=== PATIENT | male | born 1975 | race American Indian/Alaskan Native ===

== ENCOUNTER 2021-06-26 15:45 | Emergency (ER) | payer OTHER ==
[2021-06-26 16:42] VITALS: BP 130/86; PULSE 99; TEMP 98.6; BMI 28.3
== END 2021-06-26 17:20 | disposition home or self-care (01) ==
LOC: JER 15:45
DX: B34.9 Viral infection, unspecified (principal)
CPT/HCPCS: 99283-25; C9803-CS; U0003; U0005

== ENCOUNTER 2022-08-08 05:43 | Emergency (ER) | payer OTHER ==
[2022-08-08 06:03] VITALS: BP 105/75; TEMP 98; BMI 30.7
[2022-08-08] MEDS ORDERED: FAMOTIDINE 20 MG/50 ML IVPB 20 MG/50 ML MG IVPB ONE ×2 (06:12→06:22)
[2022-08-08] MEDS ORDERED: ONDANSETRON 4 MG/2 ML VIAL IVPUSH ONE (06:12)
[2022-08-08] MEDS ORDERED: LACTATED RINGERS SOLUTION 1,000 ML/1,000 ML INFUS.BAG IV SCH (06:15)
[2022-08-08] MEDS ORDERED: ONDANSETRON 4 MG/2 ML VIAL ONE (06:22)
[2022-08-08 06:32] LABS: BASO % 0.4 % (0-2.0); EOS % 0.7 % (0-4.5); HEMATOCRIT 44.5 % (35.4-49); HEMOGLOBIN 15.2 GM/dL (11.7-16.9); LYMPH % 9.6 % (8-40); MCH 29.4 pg (25.7-33.7); MCHC 34.1 g/dl (32.0-35.9); MEAN CELL VOLUME 86.3 fl (80-96); MEAN PLT VOLUME 8.2 fl (7.5-11.1); MONO % 7.3 % (3.8-10.2); PLATELET COUNT 213 10^3/uL (134-434); RBC 5.16 M/mm3 (4.00-5.60); RDW 13.5 % (11.9-15.9); WHITE BLOOD COUNT 14.2 K/mm3 (4.0-10.0)
[2022-08-08 06:51] LABS: CALCIUM 8.9 mg/dL (8.5-10.1)
[2022-08-08 06:52] LABS: ALBUMIN 3.9 g/dl (3.4-5.0); BLOOD UREA NITROGEN 15.9 mg/dL (7-18)
[2022-08-08 06:55] LABS: CREATININE 1.2 mg/dL (0.55-1.3)
[2022-08-08 06:56] LABS: TOT PROT 7.8 g/dl (6.4-8.2)
[2022-08-08 06:57] LABS: BILIRUBIN,TOTAL 0.5 mg/dL (0.2-1)
[2022-08-08 08:48] VITALS: PULSE 90; RESP 20
== END 2022-08-08 08:48 | disposition home or self-care (01) ==
LOC: JER 05:43
PROC: 3E033GC Introduction of Other Therapeutic Substance into Peripheral Vein, Percutaneous Approach (ICD-10-PCS; principal; 2022-08-08)
DX: K52.9 Noninfective gastroenteritis and colitis, unspecified (principal)
CPT/HCPCS: 0241U-QW; 36415; 80053; 83690; 85025; 99284-25

== ENCOUNTER 2022-09-19 20:39 | Emergency (ER) | payer OTHER ==
[2022-09-19 20:45] VITALS: BP 125/79; PULSE 92; RESP 16; TEMP 98.1; BMI 30.9
[2022-09-19] MEDS ORDERED: LIDOCAINE PATCH REMOVAL MC SCH (22:00)
[2022-09-19] MEDS ORDERED: ACETAMINOPHEN 500 MG TABLET (FP) PO ONE (22:08)
[2022-09-19] MEDS ORDERED: KETOROLAC TROMETHAMINE 30 MG/1 ML VIAL IM ONE (22:08)
[2022-09-19] MEDS ORDERED: LIDOCAINE 5% TOPICAL PATCH TP ONE (22:08)
[2022-09-19] MEDS ORDERED: CYCLOBENZAPRINE HCL 10 MG TABLET (FP) PO ONE (22:08)
[2022-09-19] MEDS ORDERED: LIDOCAINE 5% TOPICAL PATCH ONE (22:09)
[2022-09-19] MEDS ORDERED: CYCLOBENZAPRINE HCL 10 MG TABLET (FP) ONE (22:10)
[2022-09-19] MEDS ORDERED: ACETAMINOPHEN 500 MG TABLET (FP) ONE (22:10)
[2022-09-19] MEDS ORDERED: KETOROLAC TROMETHAMINE 30 MG/1 ML VIAL ONE (22:10)
== END 2022-09-19 23:04 | disposition home or self-care (01) ==
LOC: JERFT 20:39
PROC: 3E0233Z Introduction of Anti-inflammatory into Muscle, Percutaneous Approach (ICD-10-PCS; principal; 2022-09-19)
DX: S39.012A Strain of muscle, fascia and tendon of lower back, initial encounter (principal); M54.50 Low back pain, unspecified; M62.830 Muscle spasm of back; X50.1XXA Overexertion from prolonged static or awkward postures, initial encounter; Y93.B9 Activity, other involving muscle strengthening exercises
CPT/HCPCS: 99284-25

== ENCOUNTER 2023-01-10 14:54 | Emergency (ER) | payer OTHER ==
[2023-01-10 15:14] VITALS: BP 109/74; PULSE 81; RESP 17; TEMP 98.7; BMI 32.0
[2023-01-10] MEDS ORDERED: KETOROLAC TROMETHAMINE 15 MG/ML VIAL IVPUSH ONE (16:21)
[2023-01-10] MEDS ORDERED: KETOROLAC TROMETHAMINE 15 MG/ML VIAL ONE (16:24)
[2023-01-10 17:02] LABS: BASO % 0.6 % (0-2.0); EOS % 1.9 % (0-4.5); HEMATOCRIT 40.9 % (35.4-49); LYMPH % 41.6 % (8-40); MCHC 34.3 g/dl (32.0-35.9); MEAN CELL VOLUME 84.6 fl (80-96); MEAN PLT VOLUME 8.4 fl (7.5-11.1); MONO % 9.1 % (3.8-10.2); NEUT % 46.8 % (42.8-82.8); PLATELET COUNT 211 10^3/uL (134-434); RBC 4.83 M/mm3 (4.00-5.60); RDW 13.4 % (11.9-15.9); WHITE BLOOD COUNT 6.4 K/mm3 (4.0-10.0)
[2023-01-10 17:07] LABS: INR 0.97 (0.83-1.09); PROTHROMBIN TIME (PATIENT) 11.2 SEC (9.7-13.0)
[2023-01-10 17:10] LABS: ACTIVATED PTT 28.3 SECONDS (25.2-36.5)
[2023-01-10 17:17] LABS: POTASSIUM 4.2 mmol/L (3.5-5.1)
[2023-01-10 17:19] LABS: CALCIUM 8.9 mg/dL (8.5-10.1)
[2023-01-10 17:20] LABS: ALBUMIN 3.5 g/dl (3.4-5.0); BLOOD UREA NITROGEN 15.7 mg/dL (7-18)
[2023-01-10 17:23] LABS: CREATININE 1.2 mg/dL (0.55-1.3)
[2023-01-10 17:25] LABS: BILIRUBIN,TOTAL 0.3 mg/dL (0.2-1); TOT PROT 7.2 g/dl (6.4-8.2)
[2023-01-10] MEDS ORDERED: ACETAMINOPHEN 1000 MG/100 ML BAG IVPB ONE (17:37)
[2023-01-10] MEDS ORDERED: LIDOCAINE 5% TOPICAL PATCH TP ONE (17:37)
[2023-01-10] MEDS ORDERED: LIDOCAINE 5% TOPICAL PATCH ONE (17:45)
[2023-01-10] MEDS ORDERED: ACETAMINOPHEN INJECTION 100 ML IVPB ONE (17:45)
[2023-01-10] MEDS ORDERED: LIDOCAINE PATCH REMOVAL MC SCH (22:00)
== END 2023-01-10 19:47 | disposition home or self-care (01) ==
LOC: JER 14:54
PROC: 3E033NZ Introduction of Analgesics, Hypnotics, Sedatives into Peripheral Vein, Percutaneous Approach (ICD-10-PCS; principal; 2023-01-10)
PROC: 3E033GC Introduction of Other Therapeutic Substance into Peripheral Vein, Percutaneous Approach (ICD-10-PCS; 2023-01-10)
DX: R07.9 Chest pain, unspecified (principal)
CPT/HCPCS: 36415; 71045-TC-FY; 80053; 84484; 85025; 85610; 85730; 93005; 93010; 99285-25

== ENCOUNTER 2023-08-21 10:20 | Emergency (ER) | payer OTHER ==
[2023-08-21 10:46] VITALS: BP 125/83; PULSE 104; RESP 18; TEMP 99.1; BMI 33.6
== END 2023-08-21 11:15 | disposition home or self-care (01) ==
LOC: JERFT 10:20
DX: R05.9 Cough, unspecified (principal); J34.89 Other specified disorders of nose and nasal sinuses; J06.9 Acute upper respiratory infection, unspecified; B97.89 Other viral agents as the cause of diseases classified elsewhere; J10.1 Influenza due to other identified influenza virus with other respiratory manifestations; Z20.822 Contact with and (suspected) exposure to COVID-19
CPT/HCPCS: 0241U-QW; 99283-25

== ENCOUNTER 2025-01-18 19:02 | Emergency (ER) | payer OTHER ==
[2025-01-18 19:07] VITALS: BP 122/79; PULSE 73; RESP 17; TEMP 98.1; BMI 27.8
[2025-01-18] MEDS ORDERED: TETRACAINE 0.5% OPHTH SOLN 2 ML BOTTLE ONE (20:18)
== END 2025-01-18 20:51 | disposition home or self-care (01) ==
LOC: JERFT 19:02
DX: H57.89 Other specified disorders of eye and adnexa (principal)
CPT/HCPCS: 99283-25